=== PATIENT | female | born 1955 | race African-American/Black ===

== ENCOUNTER 2017-04-29 20:52 | Emergency (ER) | payer SELFPAY ==
[~2017-04-29] VITALS: Ht 152.4 cm; Wt 87.7 kg
[2017-04-30 00:14] LABS: POINT-OF-CARE METER ID UU13113800
[2017-04-30] MEDS ORDERED: NORCO 5/3251 TABLET PO (00:45)
[2017-04-30] MEDS ORDERED: MOTRIN600 MG PO (00:45)
[2017-04-30] MEDS ORDERED: LIDODERM 5% P1 PATCH TD (00:45)
[2017-04-30] MEDS ORDERED: VALIUM2 MG PO (00:45)
[2017-04-30 01:04] VITALS: BP 159/54
== END 2017-04-30 01:07 | disposition home or self-care (01) ==
LOC: RME 20:52 → EME 20:52 → RME 04-30 01:07
PROVIDERS: Physician Assistant
DX: S39.012A Strain of muscle, fascia and tendon of lower back, initial encounter (principal); M54.31 Sciatica, right side; M25.561 Pain in right knee; I10 Essential (primary) hypertension; E78.5 Hyperlipidemia, unspecified; E11.9 Type 2 diabetes mellitus without complications
CPT/HCPCS: 82948; 99281; 99285; J3010